=== PATIENT | female | born 1995 | race Caucasian/White ===

== ENCOUNTER 2021-06-03 00:43 | Emergency (ER) | payer OTHER ==
[~2021-06-03] VITALS: Ht 165.1 cm; Wt 72.7 kg
[2021-06-03] MEDS: methylPREDNISolone SOD SUCC PF 125 MG/2 ML VIAL. IM ONE (01:27)
[2021-06-03] MEDS: FAMOTIDINE 20 MG TABLET. PO ONE (01:27)
--- NOTE | 2021-06-03 01:41 | PHYS DOC ---
Past Medical History Past Surgical History: Cholecystectomy, , Tonsillectomy, Other Additional Past Surgical Histo: L KNEE SURGERY X2 Smoking Status: Never Smoker Alcohol Use: Rarely General Adult EDM: Chief Complaint: ALLERGIC REACTION HPI: HPI: Patient is a 26 year old F who presents with allergic reaction. She first n oticed red "itchy splotches" appear on R lateral thigh earlier this evening. The rash began to spread up her torso to anterior chest wall. Pt describes as itchy, but not painful. Scratching at the lesions aggravates, and causes raised welts to appear. She took benadryl when she first noticed the rash, and approx 45 minutes later, she began to feel short of breath. Pt described throat swelling, wheezing, and itchy feeling of her tongue. She then self-administered an Epi pen, which immediately alleviated her shortness of breath/wheeze. A similar incident occurred approx 2-3 months ago, which was when she was prescribed the Epi pen by her PCP. 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 She denies any recent exposure to new foods, soaps, or medications. Only recent change was increasing her dosage of Zoloft from 50mg to 100mg approx 6 weeks ago. She takes Zyrtec daily. Reports allergy to egg products - which causes a rash, and dairy products - which causes GI upset. She reports eating egg products earlier today. Review of Systems: Review of Systems: Review of systems: Constitutional symptoms- No fever, no chills. Eyes- No Discharge, No Visual Loss Respiratory symptoms- No shortness of breath, No wheezing, No Dyspnea on Exertion Cardiovascular Systems; No chest pain, No Palpitations, No syncope Gastrointestinal symptoms: NO abdominal pain, no nausea, no vomiting or diarrhea. Genitourinary symptoms: No dysuria. Musculoskeletal symptoms: No back pain No extremity pain. NEUROLOGICAL Symptoms: No headache, no generalized weakness; No focal Weakness Skin: Positive rash on R proximal lower extremity, anterior torso, and anterior chest wall. Heart Score: C/O Chest Pain: N/A Risk Factors: Risk Factors: DM, Current or recent (<one month) smoker, HTN, HLP, family history of CAD, obesity. Risk Scores: Score 0 - 3: 2.5% MACE over next 6 weeks - Discharge Home Score 4 - 6: 20.3% MACE over next 6 weeks - Admit for Clinical Observation Score 7 - 10: 72.7% MACE over next 6 weeks - Early Invasive Strategies Current Medications: Zoloft 100mg, Zyrtec Allergies: Allergies: Allergies Coded Allergies Type Severity Reaction Last Updated Verified Milk Containing Products Allergy Unknown 06/03/21 Yes egg Allergy Unknown 06/03/21 Yes Physical Exam: PE: General: alert, no acute distress. Skin: warm, dry and intact, urticaria present on R proximal lower extremity, anterior abdominal wall, anterior chest wall. HENT: bilateral external ears normal, oropharynx moist, nose normal. Head:: Normocephalic, atraumatic. Neck: Trachea midline. Eyes: EOMI, Normal conjunctiva, No drainage CARDIOVASCULAR: Regular rate and rhythm RESPIRATORY: No respiratory distress, lungs clear to auscultation bilaterally, no wheeze/rales/crackles Back: Full range of motion. MUSCULOSKELETAL: Full range of motion of bilateral upper and lower extremities. GASTROINTESTINAL: Abdomen soft without rebound or guarding. NEUROLOGICAL: Alert and noted to person, place and time. No neurological deficits observed Psychiatric: Cooperative. Normal judgment Current Patient Data: Vital Signs: Vital Signs Date Time Temp Pulse Resp B/P (MAP) Pulse Ox O2 Delivery O2 Flow Rate FiO2 06/03/21 00:43 98.6 126 19 139/75 (96) 100 Room Air 98.6 EKG: EKG: [] Radiology/Procedures: Radiology/Procedures: [] Course & Med Decision Making: Course & Med Decision Making Pertinent Labs and Imaging studies reviewed. (See chart for details) []Treatment with pepcid and solumedrol. Observed- no return of symptoms. Rx prednisone and refill epipen. Patient to follow up with PCP. Bernadette Disclaimer: Bernadette Disclaimer: This electronic medical record was generated, in whole or in part, using a voice recognition dictation system. Departure Departure Impression: Primary Impression: Allergic reaction Disposition: HOME / SELF CARE / HOMELESS Condition: STABLE Patient Instructions: Allergies, Generic Scripts Epinephrine (EPIPEN 2-LUCIANO) 0.3 Mg/0.3 Ml Auto.injct 1 SYR IM ONCE for 1 Day, #1 PACKET 0 Refills Prov: HOLDEN RUBIO I DO 06/03/21 Prednisone (PREDNISONE) 50 Mg Tablet 1 TAB PO DAILY, #5 TAB Prov: HOLDEN RUBIO DO 06/03/21 HOLDEN RUBIO DO Jun 03, 2021 01:41
[2021-06-03] MEDS ORDERED: EPIPEN 2-P0.3 MG/0.3 IM (01:42)
[2021-06-03] MEDS ORDERED: PRED50TA PO (01:42)
[2021-06-03 01:52] VITALS: BP 139/75
== END 2021-06-03 01:52 | disposition home or self-care (01) ==
LOC: ER 00:43
DX: T78.40XA Allergy, unspecified, initial encounter (principal); Z91.011 Allergy to milk products; Z91.012 Allergy to eggs
CPT/HCPCS: 96372; 99283; J2930